=== PATIENT | male | born 1985 | race Caucasian/White ===

== ENCOUNTER 2019-03-26 01:41 | Emergency (ER) | payer SELFPAY ==
[~2019-03-26] VITALS: Ht 177.8 cm; Wt 72.6 kg
--- NOTE | 2019-03-26 02:00 | NUR ---
ED Nurse Note: [facility] PT AO4. NAD. CURT AT BEDSIDE. C/O LEFT THORACIC PAIN. IV ACCESS ESTABLISHED. BLOOD DRAWN; SENT DOWN TO LAB.
[2019-03-26] MEDS ORDERED: Ketorolac 30mg Inj IV ONE (02:15)
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
[2019-03-26 02:20] VITALS: BP 139/83
[2019-03-26 02:23] LABS: BASOPHILS % (AUTO) 1.2 % (0.0-2.0); EOSINOPHILS % (AUTO) 2.6 % (0.0-3.0); LYMPHOCYTES % (AUTO) 38.9 % (20.0-45.0); MEAN CORPUSCULAR VOLUME 95 FL (80-99); MONOCYTES % (AUTO) 5.4 % (1.0-10.0); NEUTROPHILS % (AUTO) 51.9 % (45.0-75.0); PLATELET COUNT 318 K/UL (150-450); RED BLOOD COUNT 5.06 M/UL (4.70-6.10); RED CELL DISTRIBUTION WIDTH 11.8 % (11.6-14.8); WHITE BLOOD COUNT 8.3 K/UL (4.8-10.8)
[2019-03-26 02:34] LABS: ANION GAP 10 mmol/L (5-15); BLOOD UREA NITROGEN 14 mg/dL (7-18); CALCIUM 9.4 MG/DL (8.5-10.1); CARBON DIOXIDE 30 MMOL/L (21-32); CHLORIDE 106 MMOL/L (98-107); POTASSIUM 4.1 MMOL/L (3.5-5.1); SODIUM 146 MMOL/L (136-145)
[2019-03-26 02:39] LABS: ALANINE AMINOTRANSFERASE 32 U/L (12-78); ALBUMIN 4.4 G/DL (3.4-5.0); ALBUMIN/GLOBULIN RATIO 1.2 (1.0-2.7); ALKALINE PHOSPHATASE 112 U/L (46-116); ASPARTATE AMINO TRANSFERASE 20 U/L (15-37); BILIRUBIN,TOTAL 0.2 MG/DL (0.2-1.0)
--- NOTE | 2019-03-26 03:08 | Diagnostic Imaging Report ---
EXAM: XR Chest, 1 View CLINICAL HISTORY: CP TECHNIQUE: Frontal view of the chest. COMPARISON: No relevant prior studies available. FINDINGS: Lungs: Low lung volume accentuate lung markings and cardiovascular silhouette. Mild prominence of the central lung markings with indistinctness. Focal faint opacity in the right lower lung. Pleural space: Unremarkable. No pneumothorax. Heart: Cardiovascular silhouette, upper limits of normal. Mediastinum: Unremarkable. Bones/joints: Posttraumatic deformities in the bilateral ribs. IMPRESSION: 1. Low lung volumes limit evaluation. 2. Possible mild vascular congestion. 3. Possible developing early infiltrate versus atelectasis in the right lung base.
[2019-03-26] MEDS ORDERED: Isovue-370 150ml vial INJ PRN (03:15)
--- NOTE | 2019-03-26 03:27 | NUR ---
ED Nurse Note: PT DOWN TO CT
[2019-03-26] MEDS ORDERED: Morphine Sulfate 4mg/ml Inj (IV USE ONLY) ONE (03:58)
--- NOTE | 2019-03-26 04:03 | NUR ---
ED Nurse Note: RECEIVED VERBAL ORDER FROM ERMD FOR MORPHINE 4MG IV. NOTED AND CARRIED OUT.
[2019-03-26] MEDS ORDERED: Morphine Sulfate 4mg/ml Inj (IV USE ONLY) IVP ONE (04:15)
--- NOTE | 2019-03-26 04:57 | Diagnostic Imaging Report ---
EXAM: CT Angiography Chest With Intravenous Contrast CLINICAL HISTORY: CP TECHNIQUE: Axial computed tomographic angiography images of the chest with intravenous contrast using pulmonary embolism protocol. CTDI is 25.47 mGy and DLP is 181 mGy-cm. One or more of the following dose reduction techniques were used: automated exposure control, adjustment of the mA and/or kV according to patient size, use of iterative reconstruction technique. MIP reconstructed images were created and reviewed. CONTRAST: 100 cc of Omnipaque 350 COMPARISON: None FINDINGS: Pulmonary arteries: No filling defects in the pulmonary arteries to suggest thrombus. Aorta: No acute findings. No thoracic aortic aneurysm. Lungs: No dense consolidation. Mild streaky density in the lingula and right lower lobe. Pleural space: Unremarkable. No significant effusion. No pneumothorax. Heart: Unremarkable. No cardiomegaly. No significant pericardial effusion. No evidence of RV dysfunction. Mediastinum: Mild soft tissue stranding in the anterior mediastinal fat likely residual tissue. Bones/joints: Chronic posttraumatic deformities in bilateral ribs. No acute fracture. No dislocation. Soft tissues: Unremarkable. Lymph nodes: Small lymph nodes in the paratracheal and AP window likely reactive. Liver: Small subcentimeter hyperenhancing lesion in the posterior right hepatic lobe, probable flash filling hemangioma. IMPRESSION: 1. Negative for pulmonary embolism. 2. Mild atelectasis/scarring in the lingula and right lung base. 3. Probable hemangioma in the right hepatic lobe. 4. Eventual follow-up CT or MR imaging of the liver as indicated.
--- NOTE | 2019-03-26 05:00 | NUR ---
ED Nurse Note: PATIENT SLEEPING IN BED WITH NAD. VSS. RESPIRATIONS EVEN AND UNLABORED. FAMILY MEMBER AT BEDSIDE.
[2019-03-26 05:30] VITALS: BP 122/75
[2019-03-26] MEDS ORDERED: IBUPROFEN600 MG ORAL (05:43)
[2019-03-26] MEDS ORDERED: HYDROCODON-ACE1 EA15 ORAL (05:43)
[2019-03-26 06:00] VITALS: BP 122/75
--- NOTE | 2019-03-26 06:00 | NUR ---
ER DISCHARGE NOTE: Patient is cleared to be discharged per ERMD, pt is aox4, on room air, with stable vital signs. accompanied by family member. pt was given dc and prescription instructions, pt was able to verbalize understanding, pt id band and iv site removed without complications. pt is able to ambulate with steady gait. pt took all belongings.
--- NOTE | 2019-03-28 15:04 | Cardiology Report ---
APPROVED REPORT EKG Measurement Heart [id number] Normal sinus rhythm Possible Left atrial enlargement Borderline ECG
== END 2019-03-26 06:00 | disposition home or self-care (01) ==
LOC: EDBD 01:41 → EMR 02:04
DX: M94.0 Chondrocostal junction syndrome [Tietze] (principal); F10.920 Alcohol use, unspecified with intoxication, uncomplicated
CPT/HCPCS: 36415; 71045; 71275; 80053; 84484; 85025; 85379; 93005; 96374; 96375; 99284; J1885; J2270; Q9967